=== PATIENT | male | born 1955 | race Caucasian/White ===

== ENCOUNTER → 2016-10-18 | Outpatient (CLI) | payer BC | END | disposition home or self-care (01) | LOC: RAD.S 10:00 | DX: L97.319 Non-pressure chronic ulcer of right ankle with unspecified severity (principal) ==

== ENCOUNTER 2016-10-21 08:37 | Day surgery (SDC) | payer BC ==
[~2016-10-21] VITALS: Ht 185.4 cm; Wt 113.3 kg
== END 2016-10-21 12:01 | disposition home or self-care (01) ==
LOC: RAD.S 08:37 → EDSTATUS 10:00 → RAD.S 10:00
PROC: 065P3ZZ Destruction of Right Saphenous Vein, Percutaneous Approach (ICD-10-PCS; principal; 2016-10-21)
DX: I87.2 Venous insufficiency (chronic) (peripheral) (principal); L97.319 Non-pressure chronic ulcer of right ankle with unspecified severity; Z88.0 Allergy status to penicillin; Z88.2 Allergy status to sulfonamides; Z88.8 Allergy status to other drugs, medicaments and biological substances

== ENCOUNTER → 2016-10-24 | Outpatient (CLI) | payer BC | END | disposition home or self-care (01) | LOC: RAD.S 12:52 | DX: I87.2 Venous insufficiency (chronic) (peripheral) (principal); I82.811 Embolism and thrombosis of superficial veins of right lower extremity ==

== ENCOUNTER → 2016-10-26 | Outpatient (CLI) | payer BC | END | disposition home or self-care (01) | DX: I87.2 Venous insufficiency (chronic) (peripheral) (principal); L97.909 Non-pressure chronic ulcer of unspecified part of unspecified lower leg with unspecified severity; I87.8 Other specified disorders of veins ==